=== PATIENT | female | born 1950 | race Caucasian/White ===

== ENCOUNTER → 2017-10-04 | Outpatient (CLI) | payer MEDICARE, OTHER ==
[~2017-10-04] MED LIST: ASPI325T6 PO; CINNAMON; FISH OIL; FLAXSEED OIL; FLEXERIL 1010 MG/TAB PO; NO HOME MEDICATIONS; NORCO 325 MG-51 TAB PO; PRILOSEC 20MG20 MG PO; STOOL SOFTENER100 M2; VIT C; ZANTAC 150MG T150 MG PO
== END ==
LOC: COL.RAD 12:07
DX: M51.36 Other intervertebral disc degeneration, lumbar region (principal); M47.817 Spondylosis without myelopathy or radiculopathy, lumbosacral region

== ENCOUNTER → 2018-08-11 | Outpatient (CLI) | payer MEDICARE, OTHER | LOC: COL.RAD 06:47 | DX: R10.10 Upper abdominal pain, unspecified (principal) | CPT/HCPCS: A9537 ==

== ENCOUNTER 2018-08-29 09:02 | Day surgery (SDC) | payer MEDICARE, OTHER ==
[~2018-08-29] VITALS: Ht 162.6 cm; Wt 91.5 kg
[2018-08-29 09:31] VITALS: BP 153/77; PULSE 68; TEMP 97.3
[2018-08-29 10:45] VITALS: BP 110/57; PULSE 71; TEMP 97.5
[2018-08-29 11:00] VITALS: BP 121/75; PULSE 67
[2018-08-29 11:15] VITALS: BP 117/63; PULSE 64
[2018-08-29 11:30] VITALS: BP 113/62; PULSE 68
== END 2018-08-29 12:07 | disposition home or self-care (01) ==
LOC: SDCO 09:02
DX: K21.9 Gastro-esophageal reflux disease without esophagitis (principal); K44.9 Diaphragmatic hernia without obstruction or gangrene; K22.70 Barrett's esophagus without dysplasia; Z79.82 Long term (current) use of aspirin; Z79.899 Other long term (current) drug therapy; K76.0 Fatty (change of) liver, not elsewhere classified
CPT/HCPCS: J2250; J2405; J3010; J7030

== ENCOUNTER → 2018-11-04 | Outpatient (CLI) | payer MEDICARE, OTHER | LOC: MC.RAD 11:20 | DX: Z12.31 Encounter for screening mammogram for malignant neoplasm of breast (principal) ==

== ENCOUNTER → 2022-01-10 | Outpatient (CLI) | payer MEDICARE, OTHER | LOC: MC.RAD 14:42 | DX: Z12.31 Encounter for screening mammogram for malignant neoplasm of breast (principal) ==

== ENCOUNTER → 2023-07-18 | Outpatient (CLI) | payer MEDICARE | LOC: CANSCHCLI → MC.RAD 08:15 | DX: Z12.31 Encounter for screening mammogram for malignant neoplasm of breast (principal) ==

== ENCOUNTER → 2024-07-24 | Outpatient (CLI) | payer MEDICARE ==
[~2024-07-24] MED LIST changes: +ASPIRIN E.C. 8181 MG PO; +CLARITIN 1010 MG/TAB PO; +FLONASEALLERGY NS; +LIPITOR 10MG10 MG PO; +MULTI VITAMINS1 TAB PO; +OMEGA-3 1000 MG1 CAP PO; +SINGULAIR 110 MG/TAB PO; +TOPROL XL 50MG50 MG PO; +VITAMIN D 400400 IU PO
== END ==
LOC: MC.RAD 14:45
DX: Z12.31 Encounter for screening mammogram for malignant neoplasm of breast (principal)